=== PATIENT | male | born 1995 | race American Indian/Alaskan Native ===

== ENCOUNTER 2017-12-13 14:51 | Emergency (ER) | payer MEDICAID ==
[2017-12-13 15:20] LABS: Basophils # (Auto) 0.1 K/mm3 (0.0-0.1); Basophils % (Auto) 0.6 % (0.0-1.8); Eosinophils # (Auto) 0.1 K/mm3 (0.0-0.4); Eosinophils % (Auto) 0.6 % (0.0-4.3); Hematocrit 41.2 % (35.5-45.6); Hemoglobin 13.9 gm/dl (11.8-15.2); Lymphocytes # (Auto) 1.3 K/mm3 (1.2-5.4); Lymphocytes % (Auto) 15.6 % (13.4-35.0); Mean Corpuscular HGB Conc 34 % (32-34); Mean Corpuscular Hemoglobin 29 pg (28-32); Mean Corpuscular Volume 85 fl (84-94); Monocytes # (Auto) 0.6 K/mm3 (0.0-0.8); Monocytes % (Auto) 6.6 % (0.0-7.3); Platelet Count 307 K/mm3 (140-440); Red Blood Count 4.86 M/mm3 (3.65-5.03); Red Cell Distribution Width 15.7 % (13.2-15.2)
[2017-12-13 15:30] LABS: BUN/Creatinine Ratio 17; Blood Urea Nitrogen 10 mg/dL (9-20); Calcium 9.8 mg/dL (8.4-10.2); Hemolysis Index 1
[2017-12-13 15:52] LABS: Bilirubin,Urine NEG (Negative); Blood,Urine NEG (Negative); Color,Urine Yellow (Yellow); Mucus,Urine 3+ /HPF
[2017-12-13 16:00] LABS: Amphetamine Screen,Urine PRESUMPTIVE NEGATIVE; Benzodiazepines Screen,Urine PRESUMPTIVE NEGATIVE; Cannabinoid Screen,Urine PRESUMPTIVE NEGATIVE; Cocaine Screen,Urine PRESUMPTIVE NEGATIVE; Methadone Screen,Urine PRESUMPTIVE NEGATIVE; Opiate Screen,Urine PRESUMPTIVE NEGATIVE
--- NOTE | 2017-12-13 21:03 | Emergency Department Report ---
ED General Adult HPI - General Chief complaint: Psych Stated complaint: SUICIDAL Time Seen by Provider: 12/13/17 19:33 Source: patient Mode of arrival: Ambulatory Limitations: No Limitations - History of Present Illness Initial comments: Patient presents to the emergency department for suicidal thoughts. Patient states a couple days ago he had a knife to his throat once a kill himself. He states that he is stressed due to movement and with his biological father and stepmother for the last couple weeks. The patient has a history of autism, bipolar, and schizophrenia I will stain in a senior care in [place] before relocating here. Patient states that a lot of stressors at his home and he does not feel safe especially around his father. Patient states that he does not want to go back to his home and was felt with placement. -: Gradual Severity scale (0 -10): 0 Improves with: none Worsens with: none Associated Symptoms: denies other symptoms Treatments Prior to Arrival: none - Related Data Allergies Allergy/AdvReac Type Severity Reaction Status Date / Time banana Allergy Unknown Verified 12/13/17 15:04 Benzodiazepines Allergy Unknown Verified 12/13/17 15:04 iodine Allergy Unknown Verified 12/13/17 15:04 milk Allergy Unknown Verified 12/13/17 15:04 ED Review of Systems ROS: Stated complaint: SUICIDAL Other details as noted in HPI Comment: Unobtainable due to pts medical conditions Constitutional: denies: chills, fever Eyes: denies: eye pain, eye discharge, vision change ENT: denies: ear pain, throat pain Respiratory: denies: cough, shortness of breath, wheezing Cardiovascular: denies: chest pain, palpitations Endocrine: no symptoms reported Gastrointestinal: denies: abdominal pain, nausea, diarrhea Genitourinary: denies: urgency, dysuria Musculoskeletal: denies: back pain, joint swelling, arthralgia Skin: denies: rash, lesions Neurological: denies: headache, weakness, paresthesias Psychiatric: auditory hallucinations, suicidal thoughts, other (patient wants to hurt others but does not want to kill them). denies: anxiety, depression Hematological/Lymphatic: denies: easy bleeding, easy bruising ED Past Medical Hx - Past Medical History Hx Hypertension: Yes Hx GERD: Yes Hx Seizures: Yes - Surgical History Additional Surgical History: panick attack - Social History Smoking Status: Current Every Day Smoker ED Physical Exam - General Limitations: No Limitations General appearance: alert, in no apparent distress - Head Head exam: Present: atraumatic, normocephalic - Eye Eye exam: Present: normal appearance, PERRL, EOMI - ENT ENT exam: Present: mucous membranes moist - Neck Neck exam: Present: normal inspection - Respiratory Respiratory exam: Present: normal lung sounds bilaterally. Absent: respiratory distress, wheezes, rales - Cardiovascular Cardiovascular Exam: Present: regular rate, normal rhythm. Absent: systolic murmur, diastolic murmur, rubs, gallop - GI/Abdominal GI/Abdominal exam: Present: soft, normal bowel sounds. Absent: distended, tenderness - Rectal Rectal exam: Present: deferred - Extremities Exam Extremities exam: Present: normal inspection - Back Exam Back exam: Present: normal inspection - Neurological Exam Neurological exam: Present: alert, oriented X3, CN II-XII intact. Absent: motor sensory deficit - Psychiatric Psychiatric exam: Present: suicidal ideation, other (flat affect that the pressure speech. Patient denies homicidal ideations but states he does want to hurt others just not kill them). Absent: homicidal ideation - Skin Skin exam: Present: warm, dry, intact, normal color. Absent: rash ED Course Vital Signs 12/13/17 12/13/17 12/13/17 14:56 19:05 22:04 Temperature 99.5 F 98.4 F Pulse Rate 96 H 96 H Respiratory 19 20 18 Rate Blood Pressure 154/102 Blood Pressure 153/104 [Left] O2 Sat by Pulse 97 99 Oximetry ED Medical Decision Making - Lab Data Result diagrams: 12/13/17 15:07 12/13/17 15:07 - Medical Decision Making Plan is for patient to be evaluated by psychiatry in the a.m. A consult for social sciences lecturer was also done for reasons of placement Critical care attestation.: If time is entered above; I have spent that time in minutes in the direct care of this critically ill patient, excluding procedure time. ED Disposition Clinical Impression: Bipolar 1 disorder, Schizoaffective disorder, Autism, Suicidal ideations Disposition: DC/TX-65 PSY HOSP/PSY UNIT Is pt being admited?: No Does the pt Need Aspirin: No Condition: Stable Referrals: PRIMARY CARE, [Primary Care Provider] - 3-5 Days Time of Disposition: 01:25
[2017-12-13] MEDS ORDERED: MOTRIN PO ONE (21:17)
[2017-12-14] MEDS ORDERED: TYLENOL PO ONE (12:15)
--- NOTE | 2017-12-14 13:57 | Consultation ---
History of Present Illness - Reason for Consult Consult date: 12/14/17 Reason for consult: Mental Health Evaluation Requesting physician: XIOMARA HENSON - Chief Complaint Chief complaint: "My parents to don't want me anymore" - History of Present Psychiatric Illness 22 y.o. male brought to the ER for suicidal thoughts per the record. Today the patient is calm and cooperative during the assessment. The patient has a hx of Autism. The patient stated that he is having "issues" with his parents. He stated that his parents do not want him around. He stated that his stepmother gave him his medications in a bag and called the police so they can escort him to the ER. He did admit to getting a knife over a week ago, but denies that he wanted to kill himself or any one else. He stated that he was "upset" during that time. He was asked about a mental health hx, he could not elaborate. He stated that his parent can answer those questions. He denies SI/HI's and AVH's. Medications and Allergies Allergies Allergy/AdvReac Type Severity Reaction Status Date / Time banana Allergy Unknown Verified 12/13/17 15:04 Benzodiazepines Allergy Unknown Verified 12/13/17 15:04 iodine Allergy Unknown Verified 12/13/17 15:04 milk Allergy Unknown Verified 12/13/17 15:04 Home Medications Medication Instructions Recorded Confirmed Last Taken Type Divalproex Dr [DepaKOTE DR] 500 mg PO BID 12/14/17 12/14/17 Unknown History Haloperidol 10 mg PO BID 12/14/17 12/14/17 Unknown History Mirtazapine [Remeron] 45 mg PO QHS 12/14/17 12/14/17 Unknown History OLANzapine [ZyPREXA] 10 mg PO BID 12/14/17 12/14/17 Unknown History Past psychiatric history - Past Medical History Past Medical History: GERD, hypertension, seizures Past Surgical History: No surgical history - past Psychiatric treatment and history psychiatric treatment history: Unable to obtain a psy hx. Unable to obtain a fam psy hx. Mental Status Exam - Vital signs Last Vital Signs Temp 98.4 F 12/13/17 19:05 Pulse 96 H 12/13/17 19:05 Resp 18 12/13/17 22:04 BP 153/104 12/13/17 19:05 Pulse Ox 99 12/13/17 19:05 - Exam Narrative exam: MSE: Appearance: calm, cooperative Behavior: regular eye contact Speech: regular rate and tone Mood: "okay" Affect: congruent to mood Thought Process: circumstantial Thought Content: denies SI/HI's and AVH's Motor Activity: ambulatory Cognition: A/O x 3 Insight: variable Judgment: variable Results Result Diagrams: 12/13/17 15:07 12/13/17 15:07 Abnormal lab results 12/13/17 12/13/17 12/13/17 Range/Units 15:07 15:07 15:07 RDW (13.2-15.2) % Seg Neutrophils % (40.0-70.0) % Creatinine 0.6 L (0.8-1.5) mg/dL Glucose 103 H (75-100) mg/dL Salicylates < 0.3 L (2.8-20.0) mg/dL Acetaminophen < 5.0 L (10.0-30.0) ug/mL 12/13/17 Range/Units 15:07 RDW 15.7 H (13.2-15.2) % Seg Neutrophils % 76.6 H (40.0-70.0) % Creatinine (0.8-1.5) mg/dL Glucose (75-100) mg/dL Salicylates (2.8-20.0) mg/dL Acetaminophen (10.0-30.0) ug/mL All other labs normal. Assessment and Plan Assessment and plan: Impression: Hx of Autism. No overt psychosis with this patient. Today the patient is calm and cooperative during the assessment. UDS is negative. Recommendation/Plan: The patient does not meet criteria for 1013. The patient's medications need to be reconciled. Also, gather collateral information to help determine treatment. Case Mgmt involved, the patient may need placement once discharged.
--- NOTE | 2017-12-15 18:19 | Progress Note ---
Subjective - Reason for Consult Consult date: 12/15/17 Reason for consult: Psychiatric Follow-up Evaluation - Chief Complaint Chief complaint: "I feel good." Patient is a 22 year old male brought to the ER for suicidal thoughts per the record. The patient has a hx of Autism. Today the patient is calm and cooperative during the assessment. He states " I'm here because things are not working with me at my stepmother's house." He reports that initially he was having AH's but that have subsided. Patient expressed, although he does not have HI's towards his father he does want to hurt him. He reports poor sleep and fair appetite. He denies SI/HI's, A/VH's and delusions. Mental Status Exam - Vital signs Last Vital Signs Temp 98.1 F 12/15/17 08:00 Pulse 78 12/15/17 08:00 Resp 18 12/15/17 08:00 BP 134/75 12/15/17 08:00 Pulse Ox 99 12/15/17 08:00 - Exam Narrative exam: Mental Status Exam General Appearance: Causally Dressed-hospital gown Eye Contact: Intermittent Orientation: Alert and oriented x 4 ( person, place, time, and situation) Attitude/Behavior: Cooperative Sensorium: Distracted Psychomotor & Musculoskeletal Activity: Laying in bed Mood: "Good." Affect: Constricted Speech/Language: Regular rate and tone Thought Processes: Circumstantial Thought Content: Impoverished. Patient denies delusions. Perception: Patient denies A/V/T hallucinations. Concentration/Attention: Impaired Suicidal Ideations/Plan: Patient denies. " No" Homicidal Ideations/Plan: Patient denies. " No" Insight: Fair Judgment: Fair Assessment and Plan Impression: Hx of Autism. No overt psychosis with this patient. Today the patient is calm and cooperative during the assessment. He denies SI/HI's, A/VH's , and delusions. UDS is negative. Recommendation/Plan: 1. The patient does not meet criteria for 1013. 2. The patient's medications need to be reconciled. Also, gather collateral information to help determine treatment. Case Mgmt involved, the patient may need placement once discharged. 3. Will continue to monitor mood, psychosis, agitation, sleep, and appetite.
[2017-12-15] MEDS ORDERED: NON-FORMULARY (Mirtazapine [Remeron] 45 MG) PO SCH (22:00)
[2017-12-15] MEDS ORDERED: NON-FORMULARY (Haloperidol [Haloperidol] 10 MG) PO SCH (22:00)
[2017-12-15] MEDS ORDERED: REMERON ONE (23:47)
[2017-12-16] MEDS: HALDOL PO SCH ×2 (00:01→10:50)
[2017-12-16] MEDS: REMERON PO SCH (00:01)
[2017-12-16] MEDS ORDERED: TYLENOL PO ONE (01:10)
[2017-12-16] MEDS ORDERED: PEPCID ONE (13:58)
[2017-12-16] MEDS ORDERED: PEPCID PO ONE (14:03)
[2017-12-16] MEDS ORDERED: MOTRIN PO ONE (20:04)
[2017-12-17] MEDS: REMERON PO SCH (03:16)
[2017-12-17] MEDS: HALDOL PO SCH ×2 (03:16→10:05)
[2017-12-17] MEDS ORDERED: TYLENOL ONE (04:34)
[2017-12-17] MEDS ORDERED: TYLENOL PO ONE (04:39)
[2017-12-17 08:24] LABS: Alanine Aminotransferase 25 units/L (7-56); Lipase 23 units/L (13-60)
--- NOTE | 2017-12-17 11:02 | Progress Note ---
Subjective - Reason for Consult Consult date: 12/17/17 Reason for consult: Psychiatry Follow-up - Chief Complaint Chief complaint: "Destiny" Patient is a 22 year old male brought to the ER for suicidal thoughts per the record. The patient has a hx of Autism. Today the patient is calm and cooperative during the assessment. He stated that he is doing well and will need placement by a social sciences chair. The patient denies SI/HI's and AVH's. Per the staff, no behavioral disturbance overnight. No indications of side effects of his medications. Mental Status Exam - Vital signs Last Vital Signs Temp 98.9 F 12/17/17 04:00 Pulse 85 12/17/17 04:00 Resp 20 12/17/17 05:00 BP 144/103 12/17/17 04:00 Pulse Ox 100 12/17/17 05:00 - Exam Narrative exam: MSE: Appearance: calm, cooperative Behavior: regular eye contact Speech: regular rate and tone Mood: "okay" Affect: congruent to mood Thought Process: circumstantial Thought Content: denies SI/HI's and AVH's Motor Activity: ambulatory Cognition: A/O x 3 Insight: fair Judgment: fair Assessment and Plan Impression: Hx of Autism. No overt psychosis with this patient. Today the patient is calm and cooperative during the assessment. UDS is negative. Recommendation/Plan: Continue home medication regimen (Haldol, Remeron, Depakote , and Zyprexa). Case Mgmt involved, the patient will need placement.
--- NOTE | 2017-12-17 12:00 | Event Note ---
Date: 12/17/17 The patient's mother is here to take the patient home. She feels safe and comfortable taking the patient home. Patient is going back to a intermediate in [place]. Patient has been seen in coordination with case management and psychiatry. Mother indicates she does not need refills on the patient's medications. Vital Signs 12/13/17 12/13/17 12/13/17 14:56 19:05 20:37 Temperature 99.5 F 98.4 F 98.2 F Pulse Rate 96 H 96 H 94 H Respiratory 19 20 18 Rate Blood Pressure 154/102 147/94 Blood Pressure 153/104 [Left] O2 Sat by Pulse 97 99 97 Oximetry 12/13/17 12/14/17 12/14/17 22:04 14:16 14:17 Temperature 98.7 F Pulse Rate 87 Respiratory 18 16 16 Rate Blood Pressure Blood Pressure 153/95 [Left] O2 Sat by Pulse 98 98 Oximetry 12/14/17 12/15/17 12/16/17 20:57 08:00 01:19 Temperature 98.1 F Pulse Rate 78 78 Respiratory 20 18 20 Rate Blood Pressure Blood Pressure 134/75 124/73 [Left] O2 Sat by Pulse 98 99 99 Oximetry 12/16/17 12/16/17 12/17/17 09:00 19:34 04:00 Temperature 98.4 F 98.6 F 98.9 F Pulse Rate 72 81 85 Respiratory 18 18 20 Rate Blood Pressure Blood Pressure 128/79 153/101 144/103 [Left] O2 Sat by Pulse 99 98 100 Oximetry 12/17/17 12/17/17 04:40 05:00 Temperature Pulse Rate Respiratory 20 20 Rate Blood Pressure Blood Pressure [Left] O2 Sat by Pulse 100 Oximetry Lab Results 12/13/17 12/13/17 12/13/17 Range/Units 15:07 15:07 15:07 WBC (4.5-11.0) K/mm3 RBC (3.65-5.03) M/mm3 Hgb (11.8-15.2) gm/dl Hct (35.5-45.6) % MCV (84-94) fl MCH (28-32) pg MCHC (32-34) % RDW (13.2-15.2) % Plt Count (140-440) K/mm3 Lymph % (Auto) (13.4-35.0) % [place] % (Auto) (0.0-7.3) % Eos % (Auto) (0.0-4.3) % Baso % (Auto) (0.0-1.8) % Lymph # (1.2-5.4) K/mm3 [place] # (0.0-0.8) K/mm3 Eos # (0.0-0.4) K/mm3 Baso # (0.0-0.1) K/mm3 Seg Neutrophils % (40.0-70.0) % Seg Neutrophils # (1.8-7.7) K/mm3 Sodium 139 (137-145) mmol/L Potassium 4.3 (3.6-5.0) mmol/L Chloride 100.0 (98-107) mmol/L Carbon Dioxide 26 (22-30) mmol/L Anion Gap 17 mmol/L BUN 10 (9-20) mg/dL Creatinine 0.6 L (0.8-1.5) mg/dL Estimated GFR > 60 ml/min BUN/Creatinine Ratio 17 % Glucose 103 H (75-100) mg/dL Calcium 9.8 (8.4-10.2) mg/dL AST (5-40) units/L ALT (7-56) units/L Alkaline Phosphatase (35-129) units/L Amylase (27-131) units/L Lipase (13-60) units/L Urine Color (Yellow) Urine Turbidity (Clear) Urine pH (5.0-7.0) Ur Specific [place] (1.003-1.030) Urine Protein (Negative) mg/dL Urine Glucose (UA) (Negative) mg/dL Urine Ketones (Negative) mg/dL Urine Blood (Negative) Urine Nitrite (Negative) Urine Bilirubin (Negative) Urine Urobilinogen (<2.0) mg/dL Ur Leukocyte Esterase (Negative) Urine WBC (Auto) (0.0-6.0) /HPF Urine RBC (Auto) (0.0-6.0) /HPF Urine Mucus /HPF Salicylates < 0.3 L (2.8-20.0) mg/dL Urine Opiates Screen Urine Methadone Screen Acetaminophen < 5.0 L (10.0-30.0) ug/mL Ur Barbiturates Screen Ur Phencyclidine Scrn Ur Amphetamines Screen U Benzodiazepines Scrn Urine Cocaine Screen U Marijuana (THC) Screen Drugs of Abuse Note Plasma/Serum Alcohol (0-0.07) % 12/13/17 12/13/17 12/13/17 Range/Units 15:07 15:07 15:17 WBC 8.6 (4.5-11.0) K/mm3 RBC 4.86 (3.65-5.03) M/mm3 Hgb 13.9 (11.8-15.2) gm/dl Hct 41.2 (35.5-45.6) % MCV 85 (84-94) fl MCH 29 (28-32) pg MCHC 34 (32-34) % RDW 15.7 H (13.2-15.2) % Plt Count 307 (140-440) K/mm3 Lymph % (Auto) 15.6 (13.4-35.0) % [place] % (Auto) 6.6 (0.0-7.3) % Eos % (Auto) 0.6 (0.0-4.3) % Baso % (Auto) 0.6 (0.0-1.8) % Lymph # 1.3 (1.2-5.4) K/mm3 [place] # 0.6 (0.0-0.8) K/mm3 Eos # 0.1 (0.0-0.4) K/mm3 Baso # 0.1 (0.0-0.1) K/mm3 Seg Neutrophils % 76.6 H (40.0-70.0) % Seg Neutrophils # 6.6 (1.8-7.7) K/mm3 Sodium (137-145) mmol/L Potassium (3.6-5.0) mmol/L Chloride (98-107) mmol/L Carbon Dioxide (22-30) mmol/L Anion Gap mmol/L BUN (9-20) mg/dL Creatinine (0.8-1.5) mg/dL Estimated GFR ml/min BUN/Creatinine Ratio % Glucose (75-100) mg/dL Calcium (8.4-10.2) mg/dL AST (5-40) units/L ALT (7-56) units/L Alkaline Phosphatase (35-129) units/L Amylase (27-131) units/L Lipase (13-60) units/L Urine Color Yellow (Yellow) Urine Turbidity Clear (Clear) Urine pH 5.0 (5.0-7.0) Ur Specific [place] 1.030 (1.003-1.030) Urine Protein 30 mg/dl (Negative) mg/dL Urine Glucose (UA) Neg (Negative) mg/dL Urine Ketones 20 (Negative) mg/dL Urine Blood Neg (Negative) Urine Nitrite Neg (Negative) Urine Bilirubin Neg (Negative) Urine Urobilinogen 4.0 (<2.0) mg/dL Ur Leukocyte Esterase Neg (Negative) Urine WBC (Auto) 3.0 (0.0-6.0) /HPF Urine RBC (Auto) 1.0 (0.0-6.0) /HPF Urine Mucus 3+ /HPF Salicylates (2.8-20.0) mg/dL Urine Opiates Screen Urine Methadone Screen Acetaminophen (10.0-30.0) ug/mL Ur Barbiturates Screen Ur Phencyclidine Scrn Ur Amphetamines Screen U Benzodiazepines Scrn Urine Cocaine Screen U Marijuana (THC) Screen Drugs of Abuse Note Plasma/Serum Alcohol < 0.01 (0-0.07) % 12/13/17 12/17/17 Range/Units 15:17 07:53 WBC (4.5-11.0) K/mm3 RBC (3.65-5.03) M/mm3 Hgb (11.8-15.2) gm/dl Hct (35.5-45.6) % MCV (84-94) fl MCH (28-32) pg MCHC (32-34) % RDW (13.2-15.2) % Plt Count (140-440) K/mm3 Lymph % (Auto) (13.4-35.0) % [place] % (Auto) (0.0-7.3) % Eos % (Auto) (0.0-4.3) % Baso % (Auto) (0.0-1.8) % Lymph # (1.2-5.4) K/mm3 [place] # (0.0-0.8) K/mm3 Eos # (0.0-0.4) K/mm3 Baso # (0.0-0.1) K/mm3 Seg Neutrophils % (40.0-70.0) % Seg Neutrophils # (1.8-7.7) K/mm3 Sodium (137-145) mmol/L Potassium (3.6-5.0) mmol/L Chloride (98-107) mmol/L Carbon Dioxide (22-30) mmol/L Anion Gap mmol/L BUN (9-20) mg/dL Creatinine (0.8-1.5) mg/dL Estimated GFR ml/min BUN/Creatinine Ratio % Glucose (75-100) mg/dL Calcium (8.4-10.2) mg/dL AST 26 (5-40) units/L ALT 25 (7-56) units/L Alkaline Phosphatase 56 (35-129) units/L Amylase 47 (27-131) units/L Lipase 23 (13-60) units/L Urine Color (Yellow) Urine Turbidity (Clear) Urine pH (5.0-7.0) Ur Specific [place] (1.003-1.030) Urine Protein (Negative) mg/dL Urine Glucose (UA) (Negative) mg/dL Urine Ketones (Negative) mg/dL Urine Blood (Negative) Urine Nitrite (Negative) Urine Bilirubin (Negative) Urine Urobilinogen (<2.0) mg/dL Ur Leukocyte Esterase (Negative) Urine WBC (Auto) (0.0-6.0) /HPF Urine RBC (Auto) (0.0-6.0) /HPF Urine Mucus /HPF Salicylates (2.8-20.0) mg/dL Urine Opiates Screen Presumptive negative Urine Methadone Screen Presumptive negative Acetaminophen (10.0-30.0) ug/mL Ur Barbiturates Screen Presumptive negative Ur Phencyclidine Scrn Presumptive negative Ur Amphetamines Screen Presumptive negative U Benzodiazepines Scrn Presumptive negative Urine Cocaine Screen Presumptive negative U Marijuana (THC) Screen Presumptive negative Drugs of Abuse Note Disclamer Plasma/Serum Alcohol (0-0.07) %
[2017-12-17 12:52] VITALS: BP 135/91
== END 2017-12-17 12:51 | disposition home or self-care (01) ==
LOC: EEVIPCON 14:51 → ED 14:51
DX: F31.9 Bipolar disorder, unspecified (principal); F20.9 Schizophrenia, unspecified; F84.0 Autistic disorder; I10 Essential (primary) hypertension; K21.9 Gastro-esophageal reflux disease without esophagitis; F17.200 Nicotine dependence, unspecified, uncomplicated; Z91.011 Allergy to milk products; Z88.8 Allergy status to other drugs, medicaments and biological substances; Z91.018 Allergy to other foods; Z91.048 Other nonmedicinal substance allergy status
CPT/HCPCS: 36415; 80048; 80307; 81001; 82150; 83690; 84075; 84450; 84460; 85025; 99284; G0480; 80320; 99285